=== PATIENT | female | born 2000 | race Hispanic/Latino ===

== ENCOUNTER 2025-08-27 17:33 | Day surgery (SDC) | payer OTHER ==
[2025-08-27 18:06] VITALS: BMI 32.5
== END 2025-08-27 20:05 | disposition home or self-care (01) ==
LOC: CSHLD/OP 17:33
PROVIDERS: ATTEND Obstetrics & Gynecology
DX: O36.8330 Maternal care for abnormalities of the fetal heart rate or rhythm, third trimester, not applicable or unspecified (principal); O99.891 Other specified diseases and conditions complicating pregnancy; R03.0 Elevated blood-pressure reading, without diagnosis of hypertension; Z3A.37 37 weeks gestation of pregnancy
CPT/HCPCS: 99284